=== PATIENT | female | born 2000 | race Caucasian/White ===

== ENCOUNTER 2023-09-05 18:29 | Emergency (ER) | payer OTHER ==
[~2023-09-05] VITALS: Ht 172.7 cm; Wt 61.2 kg
[2023-09-05 18:49] VITALS: BP 117/73; PULSE 55; RESP 16; TEMP 98.2; O2SAT 100
== END 2023-09-05 23:40 | disposition left against medical advice (07) ==
LOC: ER 18:29
DX: R51.9 Headache, unspecified (principal); Z53.21 Procedure and treatment not carried out due to patient leaving prior to being seen by health care provider
CPT/HCPCS: 99281